=== PATIENT | male | born 1945 ===

== ENCOUNTER 2017-10-19 07:12 | Day surgery (SDC) | payer BC ==
[2017-03-19 08:11] VITALS: BMI 28.1
[2017-10-19] MEDS ORDERED: Lactated Ringer's 500 ML IV ONE (07:53)
[2017-10-19 08:08] VITALS: TEMP 96.8; O2SAT 100
[2017-10-19] MEDS ORDERED: Propofol 10 mg/ml Inj (20 ML) ONE ×2 (09:15→09:57)
[2017-10-19] MEDS ORDERED: EPINEPHrine 1 mg/ml (1:1000) Inj ONE (10:03)
[2017-10-19 10:46] VITALS: BP 140/76; PULSE 70; RESP 16
== END 2017-10-19 11:00 | disposition left against medical advice (07) ==
LOC: H.ENDO 07:12
PROVIDERS: ATTEND Internal Medicine Gastroenterology
DX: K31.89 Other diseases of stomach and duodenum (principal); K29.70 Gastritis, unspecified, without bleeding; R10.13 Epigastric pain; Z86.010 Personal history of colon polyps; K64.8 Other hemorrhoids; K62.1 Rectal polyp
CPT/HCPCS: 43239; 45380; 88305; J2001; J2704; J7120

== ENCOUNTER 2017-10-19 11:03 | Observation (INO) | payer BC, MEDICARE ==
[2017-10-19 11:03] VITALS: BMI 28.1
[2017-10-19] MEDS ORDERED: Iohexol 240 (50 ml) PO ONE (11:52)
--- NOTE | 2017-10-19 12:10 | ED PDOC ---
HPI: Abdomen Chief Complaint (Provider): Badominal pain History Per: Patient History/Exam Limitations: no limitations Onset/Duration Of Symptoms: Hrs Outside of [place] travel?: No Current Symptoms Are (Timing): Intermittent Episodes Quality Of Discomfort: Sharp Associated Symptoms: denies: Fever, Nausea, Vomiting, Chest Pain, Constipation, Urinary Symptoms <Natalie Field - Last Filed: 10/19/17 16:34> <Geno Moreland - Last Filed: 10/21/17 06:46> Time Seen by Provider: 10/19/17 11:40 Chief Complaint (Nursing): GI Problem Additional Complaint(s): 72 y/o HTN, and Colonic polyp was sent to ED by GI specialist for evaluation, s/ p perforation during surveillance colonoscopy this morning. As per GI report, Dr. Kruger, was treated locally with 4 resolution clips, which completed closed the perforation. Patient states he has an intermittent sharp pain localized in his LLQ since the procedure this morning. Denies N/V at this time. Patient had an EDG and Colonoscopy today morning. PMD: Dr. Jr Hess GI: Dr. Phillips (Natalie Field) Supervising Attending Note - Supervising Attending Note The Documented history was done by the: Physician Register Of Deeds The documented physical exam was done by the: Physician Register Of Deeds The documented procedures were done by the: Physician Register Of Deeds - Attestation: I have personally seen and examined this patient.: Yes I have fully participated in the care of the patient.: Yes I have reviewed all pertinent clinical information: Yes <Geno Moreland Y - Last Filed: 10/21/17 06:46> Past Medical History - Medical History PMH: Colonic Polyps, HTN Denies: Chronic Kidney Disease - Surgical History Surgical History: Endoscopy - Family History Family History: States: Unknown Family Hx - Living Arrangements Living Arrangements: Alone - Social History Current smoker - smoking cessation education provided: No Ex-Smoker (has not smoked in the last 12 months): No Alcohol: None Drugs: Denies <Natalie Field - Last Filed: 10/19/17 16:34> <Geno Moreland - Last Filed: 10/21/17 06:46> Vital Signs: Last Vital Signs Temp 98.1 F 06/13/18 16:25 Pulse 69 10/20/17 16:25 Resp 18 10/20/17 18:07 BP 153/81 H 10/20/17 16:25 Pulse Ox 99 10/20/17 18:07 - Home Medications Home Medications: Ambulatory Orders Medication Instructions Recorded Esomeprazole Magnesium [Nexium] 40 mg PO DAILY 10/19/17 Ubidecarenone [Coenzyme Q-10] 1 cap PO DAILY 10/19/17 Vitamin B Complex [Super B-50 1 cap PO DAILY 10/19/17 Complex] amLODIPine [Norvasc] 5 mg PO DAILY 10/19/17 Ciprofloxacin [Cipro] 500 mg PO BID #28 tab 10/20/17 Metronidazole [Flagyl] 500 mg PO TID #42 tablet 10/20/17 - Allergies Allergies/Adverse Reactions: Allergies Allergy/AdvReac Type Severity Reaction Status Date / Time No Known Allergies Allergy Verified 10/19/17 11:04 Review of Systems ROS Statement: Except As Marked, All Systems Reviewed And Found Negative (as per HPI) <Natalie Field - Last Filed: 10/19/17 16:34> Physical Exam - Reviewed Nursing Documentation Reviewed: Yes Vital Signs Reviewed: Yes - Physical Exam Appears: Positive for: Non-toxic, No Acute Distress Head Exam: Positive for: ATRAUMATIC, NORMOCEPHALIC Skin: Positive for: Normal Color, Warm, Dry Cardiovascular/Chest: Positive for: Regular Rate, Rhythm. Negative for: Chest Non Tender, Edema Respiratory: Positive for: Normal Breath Sounds. Negative for: Decreased Breath Sounds, Accessory Muscle Use, Crackles, Rales, Rhonchi, Wheezing, Respiratory Distress Gastrointestinal/Abdominal: Positive for: Bowel Sounds (present), Soft, Tenderness (deep palpation of LLQ), Distended (mild). Negative for: Guarding, Rebound Back: Positive for: Normal Inspection. Negative for: L CVA Tenderness, R CVA Tenderness Extremity: Positive for: Capillary Refill (<2). Negative for: Pedal Edema, Calf Tenderness Neurologic/Psych: Positive for: Alert, Oriented <Natalie Field - Last Filed: 10/19/17 16:34> - Laboratory Results Result Diagrams: 10/19/17 12:00 10/19/17 12:00 - ECG O2 Sat by Pulse Oximetry: 98 <Natalie Field - Last Filed: 10/19/17 16:34> - Laboratory Results Result Diagrams: 10/20/17 05:30 10/20/17 05:30 <Geno Moreland - Last Filed: 10/21/17 06:46> Medical Decision Making <Natalie Field - Last Filed: 10/19/17 16:34> <Geno Moreland - Last Filed: 10/21/17 06:46> Medical Decision Making: Abdominal pain -s/p bowel perforation during colonoscopy. -Treated locally with 4 clips by GI -NPO -CBC, CMP, Coag panel -EKG -Abd & pelvis CT with PO and IV contrast case discussed with Dr. Moreland (Natalie Field) Time: 13:16 --Spoke to Dr. Sinclair who agrees with antibiotics, IV fluids and NPO and advised to call surgical technologist. Time: 13:40 --vice president research was consulted and will see him in room. Time: 14:53 --Dr. Hess called to discuss case. Time: 15:37 --Dr. Hess was paged a second time. Time: 15:46 --Spoke to Dr. Hess who recommends patient be admitted to the hospitalist ammunition assembly laborer, Dr. Decker, due to microperforation s/p colonoscopy Time: 16:05 --Consulted GI fellow, Dr. Wilkerson. (Geno Moreland) Disposition - Patient ED Disposition Is Patient to be Admitted: Yes Discussed With : Geno Moreland - Disposition Disposition Time: 16:30 <Natlaie Field - Last Filed: 10/19/17 16:34> <Geno Moreland - Last Filed: 10/21/17 06:46> - Clinical Impression Clinical Impression: Perforation of colon as colonoscopy complication - Disposition Condition: STABLE
[2017-10-19 12:18] LABS: BASO % 0.4 % (0.0-2.0); EOS % 0.2 % (0.0-4.0); HEMOGLOBIN 15.8 g/dL (12.0-18.0); LYMPH # 1.2 K/uL (1.0-4.3); LYMPH % 15.9 % (20.0-40.0); MEAN CELL VOLUME 91.5 fl (80.0-94.0); MEAN CORPUSCULAR HEMOGLOBIN 30.8 pg (27.0-31.0); MEAN CORPUSCULAR HGB CONC 33.7 g/dL (33.0-37.0); MEAN PLATELET VOLUME 9.3 fl (7.2-11.7); MONO # 0.6 K/uL (0.0-0.8); MONO % 7.8 % (0.0-10.0); NEUT # 5.7 K/uL (1.8-7.0); NEUT % 75.7 % (50.0-75.0); NRBC % 0.1 % (0.0-0.0); RBC 5.11 Mil/uL (4.40-5.90); RED CELL DISTRIBUTION WIDTH 13.6 % (11.5-14.5); WHITE BLOOD COUNT 7.5 K/uL (4.8-10.8)
[2017-10-19 12:22] LABS: ALB/GLOB RATIO 1.1 (1.0-2.1); ALBUMIN 4.2 g/dL (3.5-5.0); ALT/SGPT 57 U/L (21-72); AST/SGOT 43 U/L (17-59); BLOOD UREA NITROGEN 23 mg/dl (9-20); CALCIUM 9.8 mg/dL (8.4-10.2); GFR AFRICAN-AMERICAN > 60; GFR NON-AFRICAN AMERICAN > 60
[2017-10-19] MEDS ORDERED: Iohexol 240 (50 ml) ONE (12:23)
[2017-10-19 12:26] LABS: INR 1.1 (0.9-1.2); PARTIAL THROMBOPLASTIN TIME 30.4 Seconds (25.6-37.1); PROTHROMBIN TIME 12.3 Seconds (9.8-13.1)
[2017-10-19 12:47] LABS: SQUAMOUS EPITHIAL < 1 /hpf (0-5); URINE BACTERIA RARE (<OCC); URINE BILIRUBIN NEGATIVE (NEGATIVE); URINE BLOOD NEGATIVE (NEGATIVE); URINE CLARITY SLIGHTY-CLOUDY (Clear); URINE COLOR YELLOW (YELLOW); URINE GLUCOSE (UA) NEG (Normal); URINE HYALINE CAST 0-2 /hpf (0-2); URINE LEUKOCYTE ESTERASE NEG Leu/uL (Negative); URINE PROTEIN NEGATIVE (NEGATIVE); URINE UROBILINOGEN 0.2-1.0 mg/dL (0.2-1.0)
[2017-10-19] MEDS ORDERED: Piperacillin/Tazobact 4.5 GM in Sodium Chloride 0.9% 100 ML IVPB STA (13:03)
[2017-10-19] MEDS ORDERED: Sodium Chloride 0.9% 1,000 ML IV STA (13:15)
--- NOTE | 2017-10-19 13:40 | RAD ---
HISTORY: rule out free fluid under diaphram COMPARISON: No prior. TECHNIQUE: Chest PA and lateral FINDINGS: LUNGS: No active pulmonary disease. PLEURA: No significant pleural effusion identified. No pneumothorax apparent. CARDIOVASCULAR: Atherosclerotic aortic calcifications. Cardiomediastinal silhouette prominent. OSSEOUS STRUCTURES: Degenerative changes. VISUALIZED UPPER ABDOMEN: Normal. OTHER FINDINGS: None. IMPRESSION: No active disease.
[2017-10-19] MEDS ORDERED: Iohexol 300 100 ML IJ ONE (14:05)
--- NOTE | 2017-10-19 14:20 | CP.PCM.CON ---
<Alex Kearney - Last Filed: 10/19/17 16:20> History of Present Illness - History of Present Illness History of Present Illness: General Surgery Consult Note: Dr. Sinclair 72M with PMH of HTN, colonic polyps presents to [facility] ED s/p colonoscopy. Patient suffered a perforation during retroflexion of colonoscope whoch was treated locally with clips which completely closed perforation as per medical records. At this time patient is complaining of LLQ pain that waxes and wanes. At time of examination patient was normotensive 130/28, HR 78, O2 sat 99%. Patient complained of some nausea denied fever/chills. PMH: as stated above PSurgHx: cataract surgery Allergies: NKDA Fam Hx: non-contributory Review of Systems - Review of Systems Review of Systems: 12 pt ROS unremarkable, except as stated in HPI Past Patient History - Past Medical History & Family History Past Medical History?: Yes - Past Social History Alcohol: None Drugs: Denies - CARDIAC Hx Hypertension: Yes - PULMONARY Hx Respiratory Disorders: No - NEUROLOGICAL Hx Neurological Disorder: No - HEENT Hx HEENT Problems: No - RENAL Hx Chronic Kidney Disease: No - ENDOCRINE/METABOLIC Hx Endocrine Disorders: No - HEMATOLOGICAL/ONCOLOGICAL Hx Blood Disorders: No - INTEGUMENTARY Hx Dermatological Problems: No - MUSCULOSKELETAL/RHEUMATOLOGICAL Hx Musculoskeletal Disorders: No - GASTROINTESTINAL Hx Gastrointestinal Disorders: No Hx Gastroesophageal Reflux: Yes - GENITOURINARY/GYNECOLOGICAL Hx Genitourinary Disorders: No - PSYCHIATRIC Hx Psychophysiologic Disorder: No Hx Emotional Abuse: No Hx Physical Abuse: No Hx Substance Use: No - SURGICAL HISTORY Hx Surgeries: Yes Other/Comment: RT FOOT SURGERY - ANESTHESIA Hx Anesthesia: Yes Hx Anesthesia Reactions: No Hx Malignant Hyperthermia: No Meds Allergies/Adverse Reactions: Allergies Allergy/AdvReac Type Severity Reaction Status Date / Time No Known Allergies Allergy Verified 10/19/17 11:04 - Medications Medications: Current Medications Sodium Chloride (Sodium Chloride 0.9%) 1,000 mls @ 125 mls/hr IV .Q8H STA Stop: 10/19/17 21:14 Physical Exam - Constitutional Appears: Non-toxic, No Acute Distress - Head Exam Head Exam: NORMOCEPHALIC - Eye Exam Eye Exam: EOMI, Normal appearance - ENT Exam ENT Exam: Mucous Membranes Moist - Respiratory Exam Respiratory Exam: NORMAL BREATHING PATTERN - Cardiovascular Exam Cardiovascular Exam: +S1, +S2. absent: Tachycardia - GI/Abdominal Exam GI & Abdominal Exam: Soft, Tenderness. absent: Distended, Firm, Guarding, Rebound, Rigid Additional comments: +LLQ tenderness to deep palpation +Rebound tenderness in LLQ No signs of peritonitis - Neurological Exam Neurological exam: Alert, Oriented x3 - Psychiatric Exam Psychiatric exam: Normal Mood - Skin Skin Exam: Dry, Intact, Warm Results - Vital Signs Recent Vital Signs: Last Vital Signs Temp 97 F L 10/19/17 11:13 Pulse 78 10/19/17 13:50 Resp 19 10/19/17 13:50 BP 140/70 10/19/17 13:50 Pulse Ox 98 10/19/17 13:50 - Labs Result Diagrams: 10/19/17 12:00 10/19/17 12:00 Labs: Laboratory Results - last 24 hr 10/19/17 10/19/17 10/19/17 12:00 12:00 12:00 WBC 7.5 RBC 5.11 Hgb 15.8 Hct 46.8 MCV 91.5 MCH 30.8 MCHC 33.7 RDW 13.6 Plt Count 187 MPV 9.3 Neut % (Auto) 75.7 H Lymph % (Auto) 15.9 L [place] % (Auto) 7.8 Eos % (Auto) 0.2 Baso % (Auto) 0.4 Neut # (Auto) 5.7 Lymph # (Auto) 1.2 [place] # (Auto) 0.6 Eos # (Auto) 0.0 Baso # (Auto) 0.0 PT 12.3 INR 1.1 APTT 30.4 Sodium 142 Potassium 4.5 Chloride 102 Carbon Dioxide 25 Anion Gap 20 BUN 23 H Creatinine 0.8 Est GFR ( Amer) > 60 Est GFR (Non-Af Amer) > 60 Random Glucose 79 Calcium 9.8 Total Bilirubin 1.6 H AST 43 ALT 57 Alkaline Phosphatase 87 Total Protein 8.1 Albumin 4.2 Globulin 3.9 Albumin/Globulin Ratio 1.1 Urine Color Urine Clarity Urine pH Ur Specific [place] Urine Protein Urine Glucose (UA) Urine Ketones Urine Blood Urine Nitrate Urine Bilirubin Urine Urobilinogen Ur Leukocyte Esterase Urine RBC (Auto) Urine Microscopic WBC Ur Squamous Epith Cells Urine Bacteria Hyaline Casts 10/19/17 12:38 WBC RBC Hgb Hct MCV MCH MCHC RDW Plt Count MPV Neut % (Auto) Lymph % (Auto) [place] % (Auto) Eos % (Auto) Baso % (Auto) Neut # (Auto) Lymph # (Auto) [place] # (Auto) Eos # (Auto) Baso # (Auto) PT INR APTT Sodium Potassium Chloride Carbon Dioxide Anion Gap BUN Creatinine Est GFR ( Amer) Est GFR (Non-Af Amer) Random Glucose Calcium Total Bilirubin AST ALT Alkaline Phosphatase Total Protein Albumin Globulin Albumin/Globulin Ratio Urine Color Yellow Urine Clarity Slighty-cloudy Urine pH 6.0 Ur Specific [place] 1.021 Urine Protein Negative Urine Glucose (UA) Neg Urine Ketones 80 Urine Blood Negative Urine Nitrate Negative Urine Bilirubin Negative Urine Urobilinogen 0.2-1.0 Ur Leukocyte Esterase Neg Urine RBC (Auto) 3 Urine Microscopic WBC 2 Ur Squamous Epith Cells < 1 Urine Bacteria Rare Hyaline Casts 0-2 - Imaging and Cardiology Chest x-ray Status: Image reviewed by me, Report reviewed by me Assessment & Plan - Assessment and Plan (Free Text) Assessment: 72M with LLQ tenderness s/p colonic perforation via colonoscopy Plan: NPO IVF ABx Analgesic Anti-emetic prn CXR: No free air noted under diaphragm F/u CT ABD & Pelvis w/ PO contrast Serial abdominal exams Monitor vitals D/w Dr. Yahir Estrella PGY2 <Heladio Sinclair - Last Filed: 10/19/17 17:30> History of Present Illness - History of Present Illness History of Present Illness: Patient was seen and examined at the bedside. Agree with resident's note above. Currently denies any abdominal pain. CT scan reviewed. Meds - Medications Medications: Current Medications Acetaminophen (Tylenol 325mg Tab) 650 mg PO Q6 PRN PRN Reason: Fever >100.4 F Sodium Chloride (Sodium Chloride 0.9%) 1,000 mls @ 125 mls/hr IV .Q8H STA Stop: 10/19/17 21:14 Last Admin: 10/19/17 15:30 Dose: 125 mls/hr Piperacillin Sod/Tazobactam (Sod 3.375 gm/ Sodium Chloride) 100 mls @ 100 mls/ hr IVPB Q6 ISH PRN Reason: Protocol Lactated Ringer's (Lactated Ringer's) 1,000 mls @ 100 mls/hr IV .Q10H ISH Morphine Sulfate (Morphine) 2 mg IVP Q4 PRN PRN Reason: Pain, moderate (4-7) Ondansetron HCl (Zofran Inj) 4 mg IVP Q4 PRN PRN Reason: Nausea/Vomiting Physical Exam - GI/Abdominal Exam Additional comments: soft, NT, ND, BS+, no rebound, no guarding Results - Vital Signs Recent Vital Signs: Last Vital Signs Temp 97.3 F L 10/19/17 17:17 Pulse 71 10/19/17 17:17 Resp 18 10/19/17 17:17 BP 147/80 10/19/17 17:17 Pulse Ox 96 10/19/17 17:17 - Labs Result Diagrams: 10/19/17 12:00 10/19/17 12:00 Labs: Laboratory Results - last 24 hr 10/19/17 10/19/17 10/19/17 12:00 12:00 12:00 WBC 7.5 RBC 5.11 Hgb 15.8 Hct 46.8 MCV 91.5 MCH 30.8 MCHC 33.7 RDW 13.6 Plt Count 187 MPV 9.3 Neut % (Auto) 75.7 H Lymph % (Auto) 15.9 L [place] % (Auto) 7.8 Eos % (Auto) 0.2 Baso % (Auto) 0.4 Neut # (Auto) 5.7 Lymph # (Auto) 1.2 [place] # (Auto) 0.6 Eos # (Auto) 0.0 Baso # (Auto) 0.0 PT 12.3 INR 1.1 APTT 30.4 Sodium 142 Potassium 4.5 Chloride 102 Carbon Dioxide 25 Anion Gap 20 BUN 23 H Creatinine 0.8 Est GFR ( Amer) > 60 Est GFR (Non-Af Amer) > 60 Random Glucose 79 Calcium 9.8 Total Bilirubin 1.6 H AST 43 ALT 57 Alkaline Phosphatase 87 Total Protein 8.1 Albumin 4.2 Globulin 3.9 Albumin/Globulin Ratio 1.1 Urine Color Urine Clarity Urine pH Ur Specific [place] Urine Protein Urine Glucose (UA) Urine Ketones Urine Blood Urine Nitrate Urine Bilirubin Urine Urobilinogen Ur Leukocyte Esterase Urine RBC (Auto) Urine Microscopic WBC Ur Squamous Epith Cells Urine Bacteria Hyaline Casts 10/19/17 12:38 WBC RBC Hgb Hct MCV MCH MCHC RDW Plt Count MPV Neut % (Auto) Lymph % (Auto) [place] % (Auto) Eos % (Auto) Baso % (Auto) Neut # (Auto) Lymph # (Auto) [place] # (Auto) Eos # (Auto) Baso # (Auto) PT INR APTT Sodium Potassium Chloride Carbon Dioxide Anion Gap BUN Creatinine Est GFR ( Amer) Est GFR (Non-Af Amer) Random Glucose Calcium Total Bilirubin AST ALT Alkaline Phosphatase Total Protein Albumin Globulin Albumin/Globulin Ratio Urine Color Yellow Urine Clarity Slighty-cloudy Urine pH 6.0 Ur Specific [place] 1.021 Urine Protein Negative Urine Glucose (UA) Neg Urine Ketones 80 Urine Blood Negative Urine Nitrate Negative Urine Bilirubin Negative Urine Urobilinogen 0.2-1.0 Ur Leukocyte Esterase Neg Urine RBC (Auto) 3 Urine Microscopic WBC 2 Ur Squamous Epith Cells < 1 Urine Bacteria Rare Hyaline Casts 0-2 - Imaging and Cardiology CT scan - abdomen Status: Image reviewed by me, Report reviewed by me Assessment & Plan - Assessment and Plan (Free Text) Plan: - Keep NPO - IV fluids - Antibiotics - Repeat labs in am - Will follow
--- NOTE | 2017-10-19 14:56 | CT ---
PROCEDURE: CT Abdomen and Pelvis with contrast HISTORY: s/p perforation during colonoscopy COMPARISON: None. TECHNIQUE: Contrast dose: 95 mL Omnipaque 300 Radiation dose: Total exam DLP = 301.2 mGy-cm. This CT exam was performed using one or more of the following dose reduction techniques: Automated exposure control, adjustment of the mA and/or kV according to patient size, and/or use of iterative reconstruction technique. FINDINGS: LOWER THORAX: Bibasilar atelectasis/ scarring. No focal consolidation. Heart size normal. Coronary arterial and valvular calcifications. LIVER: Unremarkable. No gross lesion or ductal dilatation. GALLBLADDER AND BILE DUCTS: Unremarkable. PANCREAS: Unremarkable. No gross lesion or ductal dilatation. SPLEEN: Unremarkable. ADRENALS: Unremarkable. No mass. KIDNEYS AND URETERS: Unremarkable. No hydronephrosis. No solid mass. VASCULATURE: Unremarkable. No aortic aneurysm. BOWEL: Oral contrast has reached the ascending colon. Surgical clips in the sigmoid with a few foci of air noted superiorly (series 3, image 120). No obstruction. No gross mural thickening. APPENDIX: Normal appendix. PERITONEUM: Unremarkable. No free fluid. No free air. LYMPH NODES: Unremarkable. No enlarged lymph nodes. BLADDER: Unremarkable. REPRODUCTIVE: Unremarkable. BONES: No acute fracture. Degenerative changes. Lumbar dextroscoliosis. OTHER FINDINGS: None. IMPRESSION: Surgical clips in the sigmoid at the reported area of perforation with a few tiny foci of air noted superiorly.
--- NOTE | 2017-10-19 15:18 | CP.PCM.CON ---
<Amy Wilkerson - Last Filed: 10/19/17 15:25> History of Present Illness - History of Present Illness History of Present Illness: Initial GI Consult PGY4 Nader Kearney is a 72M w/ hx of HTN, colon polyps who presented to [facility] for routine colonoscopy for colon surveillance. Pt has a hx of colon polyps and was recommended to have a repeat colonoscopy. He was also complaining epigastric and RUQ pain for the past few months. He denies any exacerbating or alleviating factors. He rated the pain 1-2 out of 10. During the procedure, there was a small <1cm polyp in the proximal rectum which was completely removed with forceps. The rest of colon revealed fair prep and no obvious polyps or lesion, though obscured by some liquid stool. Upon withdrawal, a retroflexion to evaluate for internal hemorrhoids was performed. After this a perforation was found at 15cm from anal verge. There was minimal blood loss. Four resolution clips were deployed to approximate the tear, which seemed successful. Post op pt complained of mild intermittent tenderness at LLQ and rated it a 2 out of 10. He also noted nausea, which was present prior to the procedure. All intraop - and post-op vitals were WNL. PMHx: HTN, hx of polyps PSHx: cataracts surgery Social hx: denies etoh, illicit drugs or smoking Family hx: reviewed; denies any GI malignancy ROS: 12 point ROS conducted, neg other than above Past Patient History - Past Medical History & Family History Past Medical History?: Yes - Past Social History Alcohol: None Drugs: Denies - CARDIAC Hx Hypertension: Yes - PULMONARY Hx Respiratory Disorders: No - NEUROLOGICAL Hx Neurological Disorder: No - HEENT Hx HEENT Problems: No - RENAL Hx Chronic Kidney Disease: No - ENDOCRINE/METABOLIC Hx Endocrine Disorders: No - HEMATOLOGICAL/ONCOLOGICAL Hx Blood Disorders: No - INTEGUMENTARY Hx Dermatological Problems: No - MUSCULOSKELETAL/RHEUMATOLOGICAL Hx Musculoskeletal Disorders: No - GASTROINTESTINAL Hx Gastrointestinal Disorders: No Hx Gastroesophageal Reflux: Yes - GENITOURINARY/GYNECOLOGICAL Hx Genitourinary Disorders: No - PSYCHIATRIC Hx Psychophysiologic Disorder: No Hx Emotional Abuse: No Hx Physical Abuse: No Hx Substance Use: No - SURGICAL HISTORY Hx Surgeries: Yes Other/Comment: RT FOOT SURGERY - ANESTHESIA Hx Anesthesia: Yes Hx Anesthesia Reactions: No Hx Malignant Hyperthermia: No Meds Allergies/Adverse Reactions: Allergies Allergy/AdvReac Type Severity Reaction Status Date / Time No Known Allergies Allergy Verified 10/19/17 11:04 - Medications Medications: Current Medications Acetaminophen (Tylenol 325mg Tab) 650 mg PO Q6 PRN PRN Reason: Fever >100.4 F Sodium Chloride (Sodium Chloride 0.9%) 1,000 mls @ 125 mls/hr IV .Q8H STA Stop: 10/19/17 21:14 Piperacillin Sod/Tazobactam (Sod 3.375 gm/ Sodium Chloride) 100 mls @ 100 mls/ hr IVPB Q6 ISH PRN Reason: Protocol Lactated Ringer's (Lactated Ringer's) 1,000 mls @ 100 mls/hr IV .Q10H ISH Morphine Sulfate (Morphine) 2 mg IVP Q4 PRN PRN Reason: Pain, moderate (4-7) Ondansetron HCl (Zofran Inj) 4 mg IVP Q4 PRN PRN Reason: Nausea/Vomiting Physical Exam - Constitutional Appears: Well, No Acute Distress - Head Exam Head Exam: ATRAUMATIC, NORMOCEPHALIC - Eye Exam Eye Exam: Normal appearance - ENT Exam ENT Exam: Mucous Membranes Moist, Normal Exam - Neck Exam Neck exam: Positive for: Normal Inspection - Respiratory Exam Respiratory Exam: Clear to Auscultation Bilateral, NORMAL BREATHING PATTERN. absent: Rales, Rhonchi, Wheezes, Respiratory Distress - Cardiovascular Exam Cardiovascular Exam: REGULAR RHYTHM, +S1, +S2 - GI/Abdominal Exam GI & Abdominal Exam: Normal Bowel Sounds, Soft. absent: Distended, Firm, Guarding, Organomegaly, Rebound, Rigid, Tenderness - Extremities Exam Extremities exam: Negative for: joint swelling, pedal edema - Neurological Exam Neurological exam: Alert, Oriented x3 - Psychiatric Exam Psychiatric exam: Normal Affect, Normal Mood - Skin Skin Exam: Dry, Intact, Normal Color Results - Vital Signs Recent Vital Signs: Last Vital Signs Temp 97 F L 10/19/17 11:13 Pulse 78 10/19/17 13:50 Resp 19 10/19/17 13:50 BP 140/70 10/19/17 13:50 Pulse Ox 98 10/19/17 14:20 - Labs Result Diagrams: 10/19/17 12:00 10/19/17 12:00 Labs: Laboratory Results - last 24 hr 10/19/17 10/19/1710/19/18 12:00 12:00 12:00 WBC 7.5 RBC 5.11 Hgb 15.8 Hct 46.8 MCV 91.5 MCH 30.8 MCHC 33.7 RDW 13.6 Plt Count 187 MPV 9.3 Neut % (Auto) 75.7 H Lymph % (Auto) 15.[address] [place] % (Auto) 7.8 Eos % (Auto) 0.2 Baso % (Auto) 0.4 Neut # (Auto) 5.7 Lymph # (Auto) 1.2 [place] # (Auto) 0.6 Eos # (Auto) 0.0 Baso # (Auto) 0.0 PT 12.3 INR 1.1 APTT 30.4 Sodium 142 Potassium 4.5 Chloride 102 Carbon Dioxide 25 Anion Gap 20 BUN 23 H Creatinine 0.8 Est GFR ( Amer) > 60 Est GFR (Non-Af Amer) > 60 Random Glucose 79 Calcium 9.8 Total Bilirubin 1.6 H AST 43 ALT 57 Alkaline Phosphatase 87 Total Protein 8.1 Albumin 4.2 Globulin 3.9 Albumin/Globulin Ratio 1.1 Urine Color Urine Clarity Urine pH Ur Specific [place] Urine Protein Urine Glucose (UA) Urine Ketones Urine Blood Urine Nitrate Urine Bilirubin Urine Urobilinogen Ur Leukocyte Esterase Urine RBC (Auto) Urine Microscopic WBC Ur Squamous Epith Cells Urine Bacteria Hyaline Casts 10/19/17 12:38 WBC RBC Hgb Hct MCV MCH MCHC RDW Plt Count MPV Neut % (Auto) Lymph % (Auto) [place] % (Auto) Eos % (Auto) Baso % (Auto) Neut # (Auto) Lymph # (Auto) [place] # (Auto) Eos # (Auto) Baso # (Auto) PT INR APTT Sodium Potassium Chloride Carbon Dioxide Anion Gap BUN Creatinine Est GFR ( Amer) Est GFR (Non-Af Amer) Random Glucose Calcium Total Bilirubin AST ALT Alkaline Phosphatase Total Protein Albumin Globulin Albumin/Globulin Ratio Urine Color Yellow Urine Clarity Slighty-cloudy Urine pH 6.0 Ur Specific [place] 1.021 Urine Protein Negative Urine Glucose (UA) Neg Urine Ketones 80 Urine Blood Negative Urine Nitrate Negative Urine Bilirubin Negative Urine Urobilinogen 0.2-1.0 Ur Leukocyte Esterase Neg Urine RBC (Auto) 3 Urine Microscopic WBC 2 Ur Squamous Epith Cells < 1 Urine Bacteria Rare Hyaline Casts 0-2 Assessment & Plan - Assessment and Plan (Free Text) Assessment: Nader Kearney is a 72M w/ hx of HTN, colon polyps who was sent to the OR due to colonic perforation during colonoscopy s/p x4 endoclips Colonic perforation s/p endo clips Nausea LLQ pain Hx of colon polyps Plan: -surgical eval and recommendations appreciated -reviewed abd xray and CT, no air in the peritoneum, small retroperit foci near perforation site -continue zosyn -keep NPO -further plans will be determined based on surgical recommendations -will need at least 2 weeks of abx -waiting on rectal polyp path, endoscopicaly looked benign -will follow D/W Dr Phillips <Vin Phillips - Last Filed: 10/19/17 19:00> Meds - Medications Medications: Current Medications Acetaminophen (Tylenol 325mg Tab) 650 mg PO Q6 PRN PRN Reason: Fever >100.4 F Sodium Chloride (Sodium Chloride 0.9%) 1,000 mls @ 125 mls/hr IV .Q8H STA Stop: 10/19/17 21:14 Last Admin: 10/19/17 15:30 Dose: 125 mls/hr Piperacillin Sod/Tazobactam (Sod 3.375 gm/ Sodium Chloride) 100 mls @ 100 mls/ hr IVPB Q6 ISH PRN Reason: Protocol Last Admin: 10/19/17 18:08 Dose: Not Given Lactated Ringer's (Lactated Ringer's) 1,000 mls @ 100 mls/hr IV .Q10H ISH Morphine Sulfate (Morphine) 2 mg IVP Q4 PRN PRN Reason: Pain, moderate (4-7) Ondansetron HCl (Zofran Inj) 4 mg IVP Q4 PRN PRN Reason: Nausea/Vomiting Results - Vital Signs Recent Vital Signs: Last Vital Signs Temp 97.3 F L 10/19/17 17:17 Pulse 71 10/19/17 18:07 Resp 18 10/19/17 18:07 BP 147/80 10/19/17 17:17 Pulse Ox 96 10/19/17 18:07 - Labs Result Diagrams: 10/19/17 12:00 10/19/17 12:00 Labs: Laboratory Results - last 24 hr 10/19/17 10/19/17 10/19/17 12:00 12:00 12:00 WBC 7.5 RBC 5.11 Hgb 15.8 Hct 46.8 MCV 91.5 MCH 30.8 MCHC 33.7 RDW 13.6 Plt Count 187 MPV 9.3 Neut % (Auto) 75.7 H Lymph % (Auto) 15.[address] % (Auto) 7.8 Eos % (Auto) 0.2 Baso % (Auto) 0.4 Neut # (Auto) 5.7 Lymph # (Auto) 1.2 [place] # (Auto) 0.6 Eos # (Auto) 0.0 Baso # (Auto) 0.0 PT 12.3 INR 1.1 APTT 30.4 Sodium 142 Potassium 4.5 Chloride 102 Carbon Dioxide 25 Anion Gap 20 BUN 23 H Creatinine 0.8 Est GFR ( Amer) > 60 Est GFR (Non-Af Amer) > 60 Random Glucose 79 Calcium 9.8 Total Bilirubin 1.6 H AST 43 ALT 57 Alkaline Phosphatase 87 Total Protein 8.1 Albumin 4.2 Globulin 3.9 Albumin/Globulin Ratio 1.1 Urine Color Urine Clarity Urine pH Ur Specific [place] Urine Protein Urine Glucose (UA) Urine Ketones Urine Blood Urine Nitrate Urine Bilirubin Urine Urobilinogen Ur Leukocyte Esterase Urine RBC (Auto) Urine Microscopic WBC Ur Squamous Epith Cells Urine Bacteria Hyaline Casts 10/19/17 12:38 WBC RBC Hgb Hct MCV MCH MCHC RDW Plt Count MPV Neut % (Auto) Lymph % (Auto) [place] % (Auto) Eos % (Auto) Baso % (Auto) Neut # (Auto) Lymph # (Auto) [place] # (Auto) Eos # (Auto) Baso # (Auto) PT INR APTT Sodium Potassium Chloride Carbon Dioxide Anion Gap BUN Creatinine Est GFR ( Amer) Est GFR (Non-Af Amer) Random Glucose Calcium Total Bilirubin AST ALT Alkaline Phosphatase Total Protein Albumin Globulin Albumin/Globulin Ratio Urine Color Yellow Urine Clarity Slighty-cloudy Urine pH 6.0 Ur Specific [place] 1.021 Urine Protein Negative Urine Glucose (UA) Neg Urine Ketones 80 Urine Blood Negative Urine Nitrate Negative Urine Bilirubin Negative Urine Urobilinogen 0.2-1.0 Ur Leukocyte Esterase Neg Urine RBC (Auto) 3 Urine Microscopic WBC 2 Ur Squamous Epith Cells < 1 Urine Bacteria Rare Hyaline Casts 0-2 Attending/Attestation - Attestation I have personally seen and examined this patient.: Yes I have fully participated in the care of the patient.: Yes I have reviewed all pertinent clinical information: Yes Notes (Text): 10/19/17 18:59 This is a 72 yr old M with history of HTN, colon polyps who was sent to the OR due to colonic perforation during colonoscopy s/p x [address] Ct showing no air in the peritoneum. Continue antibiotics and npo. Discussed with surgeon Dr Sinclair. Hemodynamically stable
--- NOTE | 2017-10-19 16:57 | CP.PCM.HP ---
History of Present Illness - History of Present Illness History of Present Illness: 72 yo male with history of HTN and Colonic Polyp had surveillance colonoscopy with 1 polyp biopsy this morning. Patient also had EGD. After the procedure, patient begun complaining of LLQ pain which waxed and waned. GI reported presence of perforation which was closed with 4 resolution clips. He was sent to ER for further evaluation and management. Present on Admission - Present on Admission Any Indicators Present on Admission: No History of DVT/PE: No History of Uncontrolled Diabetes: No Urinary Catheter: No Decubitus Ulcer Present: No Review of Systems - Review of Systems All systems: reviewed and no additional remarkable complaints except (aside from those mentioned above, 12 point system review were negative by me) Past Patient History - Tetanus Immunizations Tetanus Immunization: Unknown - Past Medical History & Family History Past Medical History?: Yes Past Family History: Reviewed and not pertinent - Past Social History Smoking Status: Never Smoked Chewing Tobacco Use: No Cigar Use: No Alcohol: None Drugs: Denies Home Situation {Lives}: With Family - CARDIAC Hx Hypertension: Yes - PULMONARY Hx Respiratory Disorders: No - NEUROLOGICAL Hx Neurological Disorder: No - HEENT Hx HEENT Problems: No - RENAL Hx Chronic Kidney Disease: No - ENDOCRINE/METABOLIC Hx Endocrine Disorders: No - HEMATOLOGICAL/ONCOLOGICAL Hx Blood Disorders: No - INTEGUMENTARY Hx Dermatological Problems: No - MUSCULOSKELETAL/RHEUMATOLOGICAL Hx Musculoskeletal Disorders: Yes - GASTROINTESTINAL Hx Gastrointestinal Disorders: No Hx Gastroesophageal Reflux: Yes - GENITOURINARY/GYNECOLOGICAL Hx Genitourinary Disorders: Yes - PSYCHIATRIC Hx Psychophysiologic Disorder: No - SURGICAL HISTORY Hx Surgeries: Yes Other/Comment: RT FOOT SURGERY - ANESTHESIA Hx Anesthesia: Yes Hx Anesthesia Reactions: No Hx Malignant Hyperthermia: No Meds Allergies/Adverse Reactions: Allergies Allergy/AdvReac Type Severity Reaction Status Date / Time No Known Allergies Allergy Verified 10/19/17 11:04 Physical Exam - Constitutional Appears: No Acute Distress - Head Exam Head Exam: ATRAUMATIC - Eye Exam Eye Exam: absent: Scleral icterus - ENT Exam ENT Exam: Mucous Membranes Moist - Neck Exam Neck exam: Negative for: Meningismus - Respiratory Exam Respiratory Exam: absent: Rales, Rhonchi, Wheezes, Respiratory Distress - Cardiovascular Exam Cardiovascular Exam: REGULAR RHYTHM, +S1, +S2 - GI/Abdominal Exam GI & Abdominal Exam: Soft. absent: Tenderness - Rectal Exam Rectal Exam: Deferred - Extremities Exam Extremities exam: Negative for: calf tenderness, pedal edema - Back Exam Back exam: absent: tenderness - Neurological Exam Neurological exam: Alert, Oriented x3 - Psychiatric Exam Psychiatric exam: Normal Affect - Skin Skin Exam: Dry, Intact Results - Vital Signs Recent Vital Signs: Last Vital Signs Temp 98 F 10/19/17 15:34 Pulse 78 10/19/17 16:31 Resp 19 10/19/17 16:31 BP 150/90 10/19/17 16:31 Pulse Ox 98 10/19/17 16:34 - Labs Result Diagrams: 10/19/17 12:00 10/19/17 12:00 Labs: Laboratory Results - last 24 hr 10/19/17 10/19/17 10/19/17 12:00 12:00 12:00 WBC 7.5 RBC 5.11 Hgb 15.8 Hct 46.8 MCV 91.5 MCH 30.8 MCHC 33.7 RDW 13.6 Plt Count 187 MPV 9.3 Neut % (Auto) 75.7 H Lymph % (Auto) 15.9 L [place] % (Auto) 7.8 Eos % (Auto) 0.2 Baso % (Auto) 0.4 Neut # (Auto) 5.7 Lymph # (Auto) 1.2 [place] # (Auto) 0.6 Eos # (Auto) 0.0 Baso # (Auto) 0.0 PT 12.3 INR 1.1 APTT 30.4 Sodium 142 Potassium 4.5 Chloride 102 Carbon Dioxide 25 Anion Gap 20 BUN 23 H Creatinine 0.8 Est GFR ( Amer) > 60 Est GFR (Non-Af Amer) > 60 Random Glucose 79 Calcium 9.8 Total Bilirubin 1.6 H AST 43 ALT 57 Alkaline Phosphatase 87 Total Protein 8.1 Albumin 4.2 Globulin 3.9 Albumin/Globulin Ratio 1.1 Urine Color Urine Clarity Urine pH Ur Specific [place] Urine Protein Urine Glucose (UA) Urine Ketones Urine Blood Urine Nitrate Urine Bilirubin Urine Urobilinogen Ur Leukocyte Esterase Urine RBC (Auto) Urine Microscopic WBC Ur Squamous Epith Cells Urine Bacteria Hyaline Casts 10/19/17 12:38 WBC RBC Hgb Hct MCV MCH MCHC RDW Plt Count MPV Neut % (Auto) Lymph % (Auto) [place] % (Auto) Eos % (Auto) Baso % (Auto) Neut # (Auto) Lymph # (Auto) [place] # (Auto) Eos # (Auto) Baso # (Auto) PT INR APTT Sodium Potassium Chloride Carbon Dioxide Anion Gap BUN Creatinine Est GFR ( Amer) Est GFR (Non-Af Amer) Random Glucose Calcium Total Bilirubin AST ALT Alkaline Phosphatase Total Protein Albumin Globulin Albumin/Globulin Ratio Urine Color Yellow Urine Clarity Slighty-cloudy Urine pH 6.0 Ur Specific [place] 1.021 Urine Protein Negative Urine Glucose (UA) Neg Urine Ketones 80 Urine Blood Negative Urine Nitrate Negative Urine Bilirubin Negative Urine Urobilinogen 0.2-1.0 Ur Leukocyte Esterase Neg Urine RBC (Auto) 3 Urine Microscopic WBC 2 Ur Squamous Epith Cells < 1 Urine Bacteria Rare Hyaline Casts 0-2 Assessment & Plan - Assessment and Plan (Free Text) Assessment: 72 yo male with history of HTN and Colonic Polyp had surveillance colonoscopy with 1 polyp biopsy this morning. Patient also had EGD. After the procedure, patient begun complaining of LLQ pain which waxed and waned. GI reported presence of perforation which was closed with 4 resolution clips. He was sent to ER for further evaluation and management. 1. Perforated Colon GI and surgical consults keep NPO IV hydration Zosyn 3.375gm IV q 6hrs Morphine 2mg IV q 4hrs prn for pain 2. HTN BP stable continue Lisinopril and HCTZ
[2017-10-19] MEDS: Piperacillin/Tazobact 3.375 GM in Sodium Chloride 0.9% 100 ML IVPB SCH ×2 (18:08→21:39)
[2017-10-19] MEDS: Lactated Ringer's 1,000 ML IV SCH (21:41)
[2017-10-20] MEDS: Lactated Ringer's 1,000 ML IV SCH ×3 (01:57→12:59)
[2017-10-20] MEDS: Piperacillin/Tazobact 3.375 GM in Sodium Chloride 0.9% 100 ML IVPB SCH ×3 (04:27→17:56)
[2017-10-20 06:38] LABS: BASO % 0.3 % (0.0-2.0); EOS % 0.3 % (0.0-4.0); HEMOGLOBIN 14.7 g/dL (12.0-18.0); LYMPH # 1.1 K/uL (1.0-4.3); LYMPH % 11.4 % (20.0-40.0); MEAN CELL VOLUME 89.6 fl (80.0-94.0); MEAN CORPUSCULAR HEMOGLOBIN 31.2 pg (27.0-31.0); MEAN CORPUSCULAR HGB CONC 34.8 g/dL (33.0-37.0); MEAN PLATELET VOLUME 9.1 fl (7.2-11.7); MONO # 0.9 K/uL (0.0-0.8); MONO % 9.5 % (0.0-10.0); NEUT # 7.7 K/uL (1.8-7.0); NEUT % 78.5 % (50.0-75.0); NRBC % 0.1 % (0.0-0.0); RBC 4.73 Mil/uL (4.40-5.90); RED CELL DISTRIBUTION WIDTH 13.3 % (11.5-14.5); WHITE BLOOD COUNT 9.7 K/uL (4.8-10.8)
[2017-10-20 06:48] LABS: BLOOD UREA NITROGEN 21 mg/dl (9-20); CALCIUM 9.2 mg/dL (8.4-10.2); GFR AFRICAN-AMERICAN > 60; GFR NON-AFRICAN AMERICAN > 60
--- NOTE | 2017-10-20 10:24 | CP.PCM.PN ---
Subjective - Date & Time of Evaluation Date of Evaluation: 10/20/17 Time of Evaluation: 10:19 - Subjective Subjective: Pt seen and examined in chair this AM. Pt has no complaints at this time except for being hungry. Pt has not received any pain medication since admission. Afebrile. Vitals and labs noted PE: Gen: Pt sitting in chair in NAD Skin: warm and dry Cardio: s1s2 RRR Lungs: CTA bilaterally Abd: Soft NTND Extr: (-) calf tenderness bilaterally A/P Colonic Perforation s/p colonoscopy Advance diet to clear liquids Continue antibiotics Monitor labs Objective - Vital Signs/Intake and Output Vital Signs (last 24 hours): Temp Pulse Resp BP Pulse Ox 97.7 F 82 19 136/78 100 10/20/17 07:56 10/20/17 07:56 10/20/17 07:56 10/20/17 07:56 10/20/17 07:56 - Medications Medications: Current Medications Acetaminophen (Tylenol 325mg Tab) 650 mg PO Q6 PRN PRN Reason: Fever >100.4 F Piperacillin Sod/Tazobactam (Sod 3.375 gm/ Sodium Chloride) 100 mls @ 100 mls/ hr IVPB Q6 ISH PRN Reason: Protocol Last Admin: 10/20/17 09:36 Dose: 100 mls/hr Lactated Ringer's (Lactated Ringer's) 1,000 mls @ 100 mls/hr IV .Q10H [facility] Last Admin: 10/20/17 09:35 Dose: 100 mls/hr Morphine Sulfate (Morphine) 2 mg IVP Q4 PRN PRN Reason: Pain, moderate (4-7) Ondansetron HCl (Zofran Inj) 4 mg IVP Q4 PRN PRN Reason: Nausea/Vomiting - Labs Labs: 10/20/17 05:30 10/20/17 05:30 PT 12.3 Seconds (9.8-13.1) 10/19/17 12:00 INR 1.1 (0.9-1.2) 10/19/17 12:00 APTT 30.4 Seconds (25.6-37.1) 10/19/17 12:00 Assessment and Plan - Assessment and Plan (Free Text) Assessment: .
--- NOTE | 2017-10-20 11:00 | CP.PCM.PN ---
<Amy Wilkerson - Last Filed: 10/20/17 11:01> Subjective - Date & Time of Evaluation Date of Evaluation: 10/20/17 Time of Evaluation: 07:00 - Subjective Subjective: PGY4 GI Follow-up Pt seen and examined bedside Denies any abd pain +Flatus NPO last night ROS: 12 point ROS conducted, neg other than above Objective - Vital Signs/Intake and Output Vital Signs (last 24 hours): Temp Pulse Resp BP Pulse Ox 97.7 F 82 19 136/78 100 10/20/17 07:56 10/20/17 07:56 10/20/17 07:56 10/20/17 07:56 10/20/17 07:56 - Medications Medications: Current Medications Acetaminophen (Tylenol 325mg Tab) 650 mg PO Q6 PRN PRN Reason: Fever >100.4 F Piperacillin Sod/Tazobactam (Sod 3.375 gm/ Sodium Chloride) 100 mls @ 100 mls/ hr IVPB Q6 ISH PRN Reason: Protocol Last Admin: 10/20/17 09:36 Dose: 100 mls/hr Lactated Ringer's (Lactated Ringer's) 1,000 mls @ 100 mls/hr IV .Q10H ISH Last Admin: 10/20/17 09:35 Dose: 100 mls/hr Morphine Sulfate (Morphine) 2 mg IVP Q4 PRN PRN Reason: Pain, moderate (4-7) Ondansetron HCl (Zofran Inj) 4 mg IVP Q4 PRN PRN Reason: Nausea/Vomiting - Labs Labs: 10/20/17 05:30 10/20/17 05:30 PT 12.3 Seconds (9.8-13.1) 10/19/17 12:00 INR 1.1 (0.9-1.2) 10/19/17 12:00 APTT 30.4 Seconds (25.6-37.1) 10/19/17 12:00 - Constitutional Appears: Well, No Acute Distress - Head Exam Head Exam: ATRAUMATIC, NORMOCEPHALIC - Eye Exam Eye Exam: Normal appearance Pupil Exam: NORMAL ACCOMODATION - ENT Exam ENT Exam: Mucous Membranes Moist, Normal Exam - Neck Exam Neck Exam: Normal Inspection - Respiratory Exam Respiratory Exam: Clear to Ausculation Bilateral, NORMAL BREATHING PATTERN. absent: Rales, Rhonchi, Wheezes, Respiratory Distress - Cardiovascular Exam Cardiovascular Exam: REGULAR RHYTHM, +S1, +S2 - GI/Abdominal Exam GI & Abdominal Exam: Soft, Normal Bowel Sounds. absent: Distended, Firm, Guarding, Rigid, Tenderness, Organomegaly - Extremities Exam Extremities Exam: absent: Joint Swelling, Pedal Edema - Neurological Exam Neurological Exam: Alert, Awake, Oriented x3 - Psychiatric Exam Psychiatric exam: Normal Affect, Normal Mood - Skin Skin Exam: Dry, Intact, Normal Color, Warm Assessment and Plan - Assessment and Plan (Free Text) Assessment: Nader Kearney is a 72M w/ hx of HTN, colon polyps who was sent to the OR due to colonic perforation during colonoscopy s/p x4 endoclips Colonic perforation s/p endo clips Nausea LLQ pain Hx of colon polyps Plan: -surgical eval and recommendations appreciated -reviewed abd xray and CT, no air in the peritoneum, small foci near perforation site -continue zosyn while inpt, please transition to cipro 500mg BID and flaygl 500mg q 8 for total 2 weeks -diet as per surgery -waiting on rectal polyp path, endoscopicaly looked benign -follow-up with dr. galeana as an oupt in 2 weeks D/W Dr Galeana <Vin Galeana - Last Filed: 10/20/17 19:52> Objective - Vital Signs/Intake and Output Vital Signs (last 24 hours): Temp Pulse Resp BP Pulse Ox 98.1 F 69 18 153/81 H 99 10/20/17 16:25 10/20/17 16:25 10/20/17 18:07 10/20/17 16:25 10/20/17 18:07 - Medications Medications: Current Medications Acetaminophen (Tylenol 325mg Tab) 650 mg PO Q6 PRN PRN Reason: Fever >100.4 F Piperacillin Sod/Tazobactam (Sod 3.375 gm/ Sodium Chloride) 100 mls @ 100 mls/ hr IVPB Q6 ISH PRN Reason: Protocol Last Admin: 10/20/17 17:56 Dose: 100 mls/hr Lactated Ringer's (Lactated Ringer's) 1,000 mls @ 100 mls/hr IV .Q10H ISH Last Admin: 10/20/17 12:59 Dose: Not Given Morphine Sulfate (Morphine) 2 mg IVP Q4 PRN PRN Reason: Pain, moderate (4-7) Ondansetron HCl (Zofran Inj) 4 mg IVP Q4 PRN PRN Reason: Nausea/Vomiting - Labs Labs: 10/20/17 05:30 10/20/17 05:30 PT 12.3 Seconds (9.8-13.1) 10/19/17 12:00 INR 1.1 (0.9-1.2) 10/19/17 12:00 APTT 30.4 Seconds (25.6-37.1) 10/19/17 12:00 Attending/Attestation - Attestation I have personally seen and examined this patient.: Yes I have fully participated in the care of the patient.: Yes I have reviewed all pertinent clinical information, including history, physical exam and plan: Yes Notes (Text): 10/20/17 19:52 This is a 72 yr old M with history of HTN, colon polyps who was sent to the ER after mucosal injury during colonoscopy s/p x [address] showing no air in the peritoneum. Continue antibiotics and npo. Discussed with surgeon Dr Sinclair. Hemodynamically stable
--- NOTE | 2017-10-20 11:39 | CARD ---
APPROVED REPORT EKG Measurement Heart [id number] <Conclusion> Normal sinus rhythm Normal ECG
[2017-10-20 16:26] VITALS: BP 153/81; PULSE 69; RESP 18; TEMP 98.1
--- NOTE | 2017-10-20 18:34 | CP.PCM.DIS ---
Provider - Provider Date of Admission: 10/19/17 15:44 Attending physician: Nikhil Decker MD Consults: Dr Jacqueline Sinclair Time Spent in preparation of Discharge (in minutes): 25 Diagnosis - Discharge Diagnosis (1) Perforation of colon as colonoscopy complication Status: Acute Comment: perforation completely closed with clips. asymptomatic and able to tolerate heart healthy diet Hospital Course - Lab Results Lab Results: Micro Results 10/19/17 11:45 Blood Blood Culture - Preliminary NO GROWTH AFTER 24 HOURS Most Recent Lab Values WBC 9.7 K/uL (4.8-10.8) 10/20/17 05:30 RBC 4.73 Mil/uL (4.40-5.90) 10/20/17 05:30 Hgb 14.7 g/dL (12.0-18.0) 10/20/17 05:30 Hct 42.3 % (35.0-51.0) 10/20/17 05:30 MCV 89.6 fl (80.0-94.0) 10/20/17 05:30 MCH 31.2 pg (27.0-31.0) H 10/20/17 05:30 MCHC 34.8 g/dL (33.0-37.0) 10/20/17 05:30 RDW 13.3 % (11.5-14.5) 10/20/17 05:30 Plt Count 180 K/uL (130-400) 10/20/17 05:30 MPV 9.1 fl (7.2-11.7) 10/20/17 05:30 Neut % (Auto) 78.5 % (50.0-75.0) H 10/20/17 05:30 Lymph % (Auto) 11.4 % (20.0-40.0) L 10/20/17 05:30 [place] % (Auto) 9.5 % (0.0-10.0) 10/20/17 05:30 Eos % (Auto) 0.3 % (0.0-4.0) 10/20/17 05:30 Baso % (Auto) 0.3 % (0.0-2.0) 10/20/17 05:30 Neut # (Auto) 7.7 K/uL (1.8-7.0) H 10/20/17 05:30 Lymph # (Auto) 1.1 K/uL (1.0-4.3) 10/20/17 05:30 [place] # (Auto) 0.9 K/uL (0.0-0.8) H 10/20/17 05:30 Eos # (Auto) 0.0 K/uL (0.0-0.7) 10/20/17 05:30 Baso # (Auto) 0.0 K/uL (0.0-0.2) 10/20/17 05:30 PT 12.3 Seconds (9.8-13.1) 10/19/17 12:00 INR 1.1 (0.9-1.2) 10/19/17 12:00 APTT 30.4 Seconds (25.6-37.1) 10/19/17 12:00 Sodium 140 mmol/l (132-148) 10/20/17 05:30 Potassium 3.9 MMOL/L (3.6-5.0) 10/20/17 05:30 Chloride 104 mmol/L (98-107) 10/20/17 05:30 Carbon Dioxide 23 mmol/L (22-30) 10/20/17 05:30 Anion Gap 17 (10-20) 10/20/17 05:30 BUN 21 mg/dl (9-20) H 10/20/17 05:30 Creatinine 0.9 mg/dl (0.8-1.5) 10/20/17 05:30 Est GFR ( Amer) > 60 10/20/17 05:30 Est GFR (Non-Af Amer) > 60 10/20/17 05:30 Random Glucose 72 mg/dL (75-110) L 10/20/17 05:30 Calcium 9.2 mg/dL (8.4-10.2) 10/20/17 05:30 Total Bilirubin 1.6 mg/dl (0.2-1.3) H 10/19/17 12:00 AST 43 U/L (17-59) 10/19/17 12:00 ALT 57 U/L (21-72) 10/19/17 12:00 Alkaline Phosphatase 87 U/L (38-126) 10/19/17 12:00 Total Protein 8.1 G/DL (6.3-8.2) 10/19/17 12:00 Albumin 4.2 g/dL (3.5-5.0) 10/19/17 12:00 Globulin 3.9 gm/dL (2.2-3.9) 10/19/17 12:00 Albumin/Globulin Ratio 1.1 (1.0-2.1) 10/19/17 12:00 Urine Color Yellow (YELLOW) 10/19/17 12:38 Urine Clarity Slighty-cloudy (Clear) 10/19/17 12:38 Urine pH 6.0 (5.0-8.0) 10/19/17 12:38 Ur Specific [place] 1.021 (1.003-1.030) 10/19/17 12:38 Urine Protein Negative mg/dL (NEGATIVE) 10/19/17 12:38 Urine Glucose (UA) Neg mg/dL (Normal) 10/19/17 12:38 Urine Ketones 80 mg/dL (NEGATIVE) 10/19/17 12:38 Urine Blood Negative (NEGATIVE) 10/19/17 12:38 Urine Nitrate Negative (NEGATIVE) 10/19/17 12:38 Urine Bilirubin Negative (NEGATIVE) 10/19/17 12:38 Urine Urobilinogen 0.2-1.0 mg/dL (0.2-1.0) 10/19/17 12:38 Ur Leukocyte Esterase Neg [place]/uL (Negative) 10/19/17 12:38 Urine RBC (Auto) 3 /hpf (0-3) 10/19/17 12:38 Urine Microscopic WBC 2 /hpf (0-5) 10/19/17 12:38 Ur Squamous Epith Cells < 1 /hpf (0-5) 10/19/17 12:38 Urine Bacteria Rare (<OCC) 10/19/17 12:38 Hyaline Casts 0-2 /hpf (0-2) 10/19/17 12:38 - Hospital Course Hospital Course: 72 yo male with history of HTN and Colonic Polyp had surveillance colonoscopy with 1 polyp biopsy plus EGD. Patient tolerated procedure but perforation was found 15cm from the anal verge. Perforation was completely closed locally with clips and patient placed on observation. He was put on NPO and started on IV Zosyn. Patient denied any complaint. He was put on clear liquid then regular diet the next day and tolerated. Patient discharged in stable condition. He will follow with Dr Phillips in 2 weeks and continue PO Cipro and Flagyl for 14 days. Discharge Exam - Head Exam Head Exam: ATRAUMATIC, NORMOCEPHALIC - Eye Exam Eye Exam: absent: Scleral icterus - ENT Exam ENT Exam: Mucous Membranes Moist - Respiratory Exam Respiratory Exam: absent: Rales, Rhonchi, Wheezes, Respiratory Distress - Cardiovascular Exam Cardiovascular Exam: REGULAR RHYTHM, +S1, +S2 - GI/Abdominal Exam GI & Abdominal Exam: Soft. absent: Tenderness - Rectal Exam Rectal Exam: Deferred - Back Exam Back exam: absent: tenderness - Neurological Exam Neurological exam: Alert, Oriented x3 - Psychiatric Exam Psychiatric exam: Normal Affect - Skin Skin Exam: Dry, Intact Discharge Plan - Discharge Medications Prescriptions: Ciprofloxacin [Cipro] 500 mg PO BID #28 tab Metronidazole [Flagyl] 500 mg PO TID #42 tablet - Follow Up Plan Condition: STABLE Disposition: HOME/ ROUTINE Instructions: Perforation of the GI Tract (DC) Additional Instructions: hacer sera con [facility] y gastroenterologa dentro de 1 semana Referrals: Vin Phillips MD [Medical Doctor] - 2 Weeks () Heladio Sinclair MD [Staff Provider] -
[2017-10-20 18:45] VITALS: O2SAT 99
== END 2017-10-20 19:45 | disposition home or self-care (01) ==
LOC: H.ER 11:03 → H.ERHOLD 15:44 → H.MEDSURG1 16:58
DX: K63.1 Perforation of intestine (nontraumatic) (principal); K21.9 Gastro-esophageal reflux disease without esophagitis; I10 Essential (primary) hypertension; Z86.010 Personal history of colon polyps
CPT/HCPCS: 36415; 71046; 74177; 80048; 80053; 81003; 85025; 85610; 85730; 87040; 93005; 99283; G0378; J2543; J7030; J7120; Q9966; Q9967